=== PATIENT | female | born 1955 | race African-American/Black ===

== ENCOUNTER 2017-04-10 12:07 | Emergency (ER) | payer OTHER ==
[~2017-04-10] VITALS: Ht 172.7 cm; Wt 77.1 kg
--- NOTE | ~2017-04-10 | EKG ---
[address] [place] [address] ELECTROCARDIOGRAM REPORT Name: DEMAR COPPOLA Room #: [facility]P [id number] Admission: 04/10/17 Attend Phys: Discharge: 04/10/17 Date of : 51 Report #: [id number] THIS REPORT FOR: //name// 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
[~2017-04-10 12:07] MED LIST: METFORMIN; NAPROSYN500 MG PO; NORCO 5-325 TA1 EACH PO; NORFLEX100 MG PO
[2017-04-10 13:24] LABS: WBC 10.7 thou/uL (4.0-11.0)
[2017-04-10 13:26] LABS: ABSOLUTE NEUTROPHILS 4.9 thou/uL (1.4-8.2); BASOPHILS 1.5 % (0.0-2.0); EOSINOPHILS 5.4 % (0.0-3.0); HEMATOCRIT 41.6 % (37.0-47.0); LYMPHOCYTES 32.9 % (24.0-44.0); MANUAL DIFF NO; MCH 31.7 pg (26.0-34.0); MCHC 33.6 g/dL (28.0-37.0); MCV 94.2 fL (80.0-100.0); MONOCYTES 8.4 % (1.0-8.0); POLYS 51.8 % (36.0-66.0); RBC 4.42 mil/uL (4.20-5.00); RDW 14.3 % (10.5-14.5)
[2017-04-10 13:33] LABS: ANION GAP 13 mmol/L (7-16); BUN 14 mg/dL (7-18); CALCIUM 10.1 mg/dL (8.5-10.1); CHLORIDE 105 mmol/L (98-107); CO2 22 mmol/L (21-32); CREATININE 1.1 mg/dL (0.6-1.0); GLUCOSE 90 mg/dL (74-106); POTASSIUM 3.8 mmol/L (3.5-5.1); SODIUM 140 mmol/L (136-145)
[2017-04-10 13:41] LABS: ALKALINE PHOSPHATASE 60 U/L (46-116); SGOT 20 U/L (15-37); SGPT 8 U/L (30-65); TOTAL BILIRUBIN 0.5 mg/dL (<0.1-1.0); TOTAL PROTEIN 7.4 g/dL (6.4-8.2); TROPONIN-I < 0.04 ng/mL (<0.04-0.07)
[2017-04-10 13:45] LABS: PLATELET COUNT 327 thou/uL (150-400)
[2017-04-10] MEDS ORDERED: DELTASONE20 MG PO (14:12)
[2017-04-10] MEDS ORDERED: AFRIN15 ML NS (14:12)
[2017-04-10 14:20] VITALS: BP 125/70
== END 2017-04-10 14:25 | disposition home or self-care (01) ==
LOC: ER 12:07
PROVIDERS: Physician Assistant
DX: J45.901 Unspecified asthma with (acute) exacerbation (principal); E11.9 Type 2 diabetes mellitus without complications